=== PATIENT | male | born 1980 | race Caucasian/White ===

== ENCOUNTER 2016-10-05 08:52 | Emergency (ER) | payer OTHER ==
[2016-10-05 10:50] VITALS: BP 129/74
--- NOTE | 2016-10-05 11:16 | ED ---
Headache - HPI Summary HPI Summary: He states he does not typically experience headaches. For the past three days he has had throbbing headache associated with exertion such as intercourse and pushing with BM. He had not had a sudden thunderclap but the headache will start off small and then increase with the exertion. He does not get neurologic deficits. He has had some mild sinus congestion but no sinus pain. He has tried drinking caffeine without help. No nuchalrigidity. He has also checked BP at times and it has been normal. - History Of Current Complaint Chief Complaint: UCGeneralIllness Stated Complaint: HEADACHES WITH EXERTION Time Seen by Provider: 10/05/16 09:13 Hx Obtained From: Patient Onset/Duration: Gradual Onset, Still Present - He has a very mild 1/10 headache currently. Timing: Intermittent, Lasting:, Hours Character: Throbbing Location of Headache: Temporal Aggravating Factor: Exertion Allevating Factors: Rest Associated Signs And Symptoms: Negative - Allergies/Home Medications Allergies/Adverse Reactions: Allergies Allergy/AdvReac Type Severity Reaction Status Date / Time No Known Allergies Allergy Verified 10/05/16 09:08 PMH/Surg Hx/FS Hx/Imm Hx Endocrine/Hematology History: Denies: Hx Diabetes, Hx Thyroid Disease Cardiovascular History: Comment Only: Hx Hypertension - used to-no longer takes (after 200 lb weight loss) Respiratory History: Reports: Hx Sleep Apnea Denies: Hx Asthma GI History: Reports: Hx Gastroesophageal Reflux Disease - ON MEDICATION FOR Sensory History: Reports: Hx Contacts or Glasses - WILL WEAR GLASSES Denies: Hx Hearing Aid Opthamlomology History: Reports: Hx Contacts or Glasses - WILL WEAR GLASSES - Surgical History Surgery Procedure, Year, and Place: sleeve gastrectomy 2014, sleep apnea correction surgery 2011, sinus Hx Anesthesia Reactions: No Infectious Disease History: No Infectious Disease History: Denies: Traveled Outside the [place] in Last 30 Days - Family History Known Family History: Positive: Other - no related headache history. - Social History Alcohol Use: Occasionally Substance Use Type: Reports: None Smoking Status (MU): Heavy Every Day Tobacco Smoker Type: Cigarettes Amount Used/How Often: 1 PPD Length of Time of Smoking/Using Tobacco: since age 15 Have You Smoked in the Last Year: Yes Review of Systems All Other Systems Reviewed And Are Negative: Yes Physical Exam Triage Information Reviewed: Yes Vital Signs On Initial Exam: Initial Vitals Temp Pulse Resp BP Pulse Ox 98.1 F 71 16 133/71 100 10/05/16 09:01 10/05/16 09:01 10/05/16 09:01 10/05/16 09:01 10/05/16 09:01 Vital Signs Reviewed: Yes Appearance: Positive: Well-Appearing, No Pain Distress, Well-Nourished Skin: Positive: Warm, Skin Color Reflects Adequate Perfusion, Dry Eyes: Positive: Normal, EOMI, KIRAN. Negative: Conjunctiva Clear, Conjunctiva Inflammed, Discharge ENT: Positive: Normal ENT inspection, Hearing grossly normal, Pharynx normal, TMs normal. Negative: Pharyngeal erythema, Nasal congestion, Nasal drainage, TM bulging, TM dull, TM red, Tonsillar swelling, Tonsillar exudate, Trismus, Muffled/hoarse voice Neck: Positive: Supple, Nontender, No Lymphadenopathy Respiratory/Lung Sounds: Positive: Clear to Auscultation, Breath Sounds Present. Negative: Decreased Breath Sounds, Rales, Rhonchi, Subcutaneous Emphysema, Stridor, Tracheal Deviation, Wheezes Cardiovascular: Positive: Normal, RRR Abdomen Description: Positive: Nontender, No Organomegaly, Soft Musculoskeletal: Positive: Normal Neurological: Positive: Normal, Sensory/Motor Intact, Alert, Oriented to Person Place, Time, CN Intact II-III, Normal Gait, Heel to Toe, Finger to Nose, Facial Symmetry, Speech Normal. Negative: Abnormal Gait, Receptive Aphasia, Expressive Aphasia, Cerebellar Dysfunction, Disoriented, EOM Palsy, Facial Droop , Focal Deficit @, Slurred Speech, Dysphagia, Rhomberg, Ataxic Gait, Dysarthric Aphasia, Pronator Drift Present Psychiatric: Positive: Normal, Affect/Mood Appropriate Diagnostics - Vital Signs Vital Signs Temp Pulse Resp BP Pulse Ox 10/05/16 10:43 98.3 F 58 18 129/74 100 10/05/16 09:01 98.1 F 71 16 133/71 100 - Laboratory Lab Statement: Any lab studies that have been ordered have been reviewed, and results considered in the medical decision making process. Headache Course/Dx - Course Course Of Treatment: With this exertional headaches and no hx of significant headaches we decided to r/u aneuysm. He has not had thunderclap headache or nuchal rigidity to suggest SAH. CTA brain pending. If normal, we will have f/u with pcp. - Diagnoses Provider Diagnoses: Headache
--- NOTE | 2016-10-05 11:21 | RAD ---
HISTORY: Exertional headache COMPARISONS: None TECHNIQUE: Multiple contiguous axial CT scans were obtained of the head After the administration of nonionic intravenous contrast timed to the systemic arterial phase of contrast enhancement. Coronal and sagittal multiplanar reformations are submitted for review. Multiple 3-D maximum intensity projection reconstructions are also submitted for review. FINDINGS: Presence of intravenous contrast precludes evaluation for subarachnoid hemorrhage RIGHT VERTEBRAL ARTERY: The distal right vertebral artery is unremarkable, without stenosis. LEFT VERTEBRAL ARTERY: The distal left vertebral artery is unremarkable, without stenosis. DOMINANCE: The left vertebral artery is dominant. DISTAL RIGHT CERVICAL INTERNAL CAROTID ARTERY: The distal right cervical internal carotid artery is unremarkable. DISTAL LEFT CERVICAL INTERNAL CAROTID ARTERY: The distal left cervical internal carotid artery is unremarkable. INTRACRANIAL CIRCULATION: There is no aneurysm, vascular malformation, occlusion, or stenosis of the visualized intracranial circulation. The anterior communicating artery complex is clear. Bilateral posterior communicating arteries are identified. VENOUS CIRCULATION: The venous system is unremarkable. PERFUSION: There is no obvious parenchymal perfusion deficit. HEMORRHAGE/INFARCT: There is no hemorrhage or acute infarct. The presence of intravenous contrast precludes evaluation of subarachnoid hemorrhage.. MASSES/SHIFT: There is no mass or shift. EXTRA-AXIAL SPACES: There are no appreciable extra-axial fluid collections. SULCI AND VENTRICLES: The sulci and ventricles are normal in size and position for the patient's stated age. CEREBRUM: There are no focal parenchymal abnormalities. BRAINSTEM: There are no focal parenchymal abnormalities. CEREBELLUM: There are no focal parenchymal abnormalities. PARANASAL SINUSES: The paranasal sinuses are clear. ORBITS: The orbits are unremarkable. BONES AND SOFT TISSUE: No bone or soft tissue abnormalities are noted. OTHER: There is no abnormal enhancement. IMPRESSION: 1. THE PRESENCE OF INTRAVENOUS CONTRAST PRECLUDES EVALUATION FOR SUBARACHNOID HEMORRHAGE. 2. NO ANEURYSM, VASCULAR MALFORMATION, OCCLUSION, OR STENOSIS OF THE VISUALIZED INTRACRANIAL CIRCULATION.
[2016-10-05] MEDS ORDERED: Iohexol 350* (CONTRAST) 500 ML MDV IV ONE (12:46)
== END 2016-10-05 11:39 | disposition home or self-care (01) ==
LOC: UCCORT 08:52
DX: R51 Headache (principal); G47.30 Sleep apnea, unspecified; K21.9 Gastro-esophageal reflux disease without esophagitis; Z98.84 Bariatric surgery status; F17.210 Nicotine dependence, cigarettes, uncomplicated
CPT/HCPCS: 70496; 99212; G0463; Q9967